=== PATIENT | female | born 1965 | race Caucasian/White ===

== ENCOUNTER 2019-11-18 23:54 | Emergency (ER) | payer MEDICAID ==
[2019-11-19] MEDS ORDERED: Ketorolac 60 MG/2 ML SDV IM ONE (00:48)
--- NOTE | 2019-11-19 00:55 | EDM.PDOC ---
ED HPI GENERAL MEDICAL PROBLEM - General Chief Complaint: Skin Complaint Stated Complaint: FELL OF DECK INJURING RIGHT CHEEK Time Seen by Provider: 11/19/19 00:40 Source of Information: Reports: Patient, Old Records History Limitations: Reports: No Limitations - History of Present Illness INITIAL COMMENTS - FREE TEXT/NARRATIVE: 54 yo female fell off her deck when the railing broke. No definite LOC. Has a GERMAN and R facial swelling. Vision was fine before the eye swelled shut. No vomiting or neck pain. No extremity injuries. Onset: Today Onset Date: 11/19/19 Onset Time: 00:00 Duration: Minutes:, Constant Location: Reports: Face Quality: Reports: Ache Severity: Moderate Improves with: Reports: None Worsens with: Reports: Other (touching area) Context: Reports: Trauma Associated Symptoms: Reports: No Other Symptoms Treatments CODING SPEC: Reports: Other (see below) (none) Right Cheek Pain Score (Numeric/FACES): 5 - Related Data Allergies Allergy/AdvReac Type Severity Reaction Status Date / Time No Known Allergies Allergy Verified 11/19/19 00:36 Home Meds: Home Meds Escitalopram [Lexapro] 20 mg PO DAILY 11/19/19 [History] Ibuprofen 600 mg PO ASDIRECTED 11/19/19 [History] buPROPion [buPROPion XL] 150 mg PO DAILY 11/19/19 [History] busPIRone [Buspar] 10 mg PO DAILY 11/19/19 [History] Past Medical History Genitourinary History: Reports: Other (See Below) Other Genitourinary History: endometriosis CADDIE History: Reports: Endometriosis Psychiatric History: Reports: Anxiety, Depression Dermatologic History: Reports: Other (See Below) Other Dermatologic History: rash on abdomen - Infectious Disease History Infectious Disease History: Reports: Chicken Pox - Past Surgical History Female Surgical History: Reports: Endometrial Ablation Social & Family History - Tobacco Use Smoking Status *Q: Never Smoker Second Hand Smoke Exposure: No - Caffeine Use Caffeine Use: Reports: Soda - Recreational Drug Use Recreational Drug Use: No ED ROS GENERAL - Review of Systems Review Of Systems: See Below Constitutional: Reports: No Symptoms HEENT: Reports: Other (R cheek pain and swelling. R eye swollen shut.) Respiratory: Reports: No Symptoms Cardiovascular: Reports: No Symptoms GI/Abdominal: Reports: No Symptoms. Denies: Nausea Musculoskeletal: Reports: No Symptoms Skin: Reports: Bruising (R cheek and periorbital ) Neurological: Reports: Headache ED EXAM, SKIN/RASH Exam: See Below Exam Limited By: No Limitations General Appearance: Alert, WD/WN, No Apparent Distress Eye Exam: Bilateral Eye: Normal Inspection (unable to visualize R eye due to swelling) Ears: Normal External Exam, Normal Canal, Hearing Grossly Normal, Normal TMs Nose: Normal Inspection, No Blood Throat/Mouth: Normal Inspection, Normal Lips, Normal Teeth, Normal Oropharynx, Normal Voice, No Airway Compromise Head: Facial Swelling (R cheek area), Facial Tenderness (R side) Neck: Normal Inspection, Supple, Non-Tender, Full Range of Motion Respiratory/Chest: No Respiratory Distress, Lungs Clear, Normal Breath Sounds, No Accessory Muscle Use Cardiovascular: Regular Rate, Rhythm, No Edema GI/Abdominal: Soft, Non-Tender, No Distention Back Exam: Normal Inspection. No: Vertebral Tenderness Extremities: Normal Inspection, Normal Range of Motion, Non-Tender, No Pedal Edema Neurological: Alert, Oriented, CN II-XII Intact, Normal Cognition, No Motor/Sensory Deficits Psychiatric: Normal Affect, Normal Mood Skin: Warm, Dry, Intact, No Rash, Ecchymosis (R cheek and R periorbital) Location, Skin: Face (R cheek) Associated features: Tenderness, Induration Course - Vital Signs Last Recorded V/S: Last Vital Signs Temp 35.4 C L 11/19/19 00:39 Pulse 85 11/19/19 00:39 Resp 16 11/19/19 00:39 BP 142/91 H 11/19/19 00:39 Pulse Ox 99 11/19/19 00:39 - Orders/Labs/Meds Meds: Medications Discontinued Medications Generic Name Dose Route Start Last Admin Trade Name Freq PRN Reason Stop Dose Admin Ketorolac Tromethamine 60 mg 11/19/19 00:48 11/19/19 00:55 Toradol IM 11/19/19 00:49 60 mg ONETIME ONE Administration - Radiology Interpretation Free Text/Narrative:: CT facial bones- IMPRESSION: Large hematoma within the subcutaneous tissues overlying the right maxilla and extending into the right lower eyelid and right lateral periorbital region. No sign of any associated facial fracture. No sign of any injury to the intraorbital soft tissue structures on the right. Please note that all CT scans at this facility use dose modulation, iterative reconstruction, and/or weight-based dosing when appropriate to reduce radiation dose to as low as reasonably achievable. Dictated by Vikas Fernandez MD @ Nov 19 2019 1:29AM (Electronic Signature) CT Results Date: 11/19/19 CT Results Time: 01:55 Departure - Departure Time of Disposition: 02:04 Disposition: Home, Self-Care 01 Condition: Fair Clinical Impression: Traumatic hematoma of face Qualifiers: Encounter type: initial encounter Qualified Code(s): S00.83XA - Contusion of other part of head, initial encounter - Discharge Information *PRESCRIPTION DRUG MONITORING PROGRAM REVIEWED*: No *COPY OF PRESCRIPTION DRUG MONITORING REPORT IN PATIENT JANELLE: No Instructions: Contusion, [id number] Referrals: Bronwyn Chairez PA-C [Primary Care Provider] - Forms: ED Department Discharge Additional Instructions: Acetaminophen and/or ibuprofen as needed for pain relief. Rest. Recheck as needed. Sepsis Event Note (ED) - Evaluation Sepsis Screening Result: No Definite Risk - Focused Exam Vital Signs: Vital Signs Temp Pulse Resp BP Pulse Ox 11/19/19 00:39 35.4 C L 85 16 142/91 H 99 11/19/19 00:23 35.4 C L 85 16 142/91 H 99
--- NOTE | 2019-11-19 01:35 | CRLCT ---
INDICATION: Status post fall, striking face on dock COMPARISON: None available TECHNIQUE: CT examination of the facial bones is performed without contrast enhancement using spiral technique. 2-mm thick axial, coronal and sagittal sections were obtained from the data. Please note that all CT scans at this facility use dose modulation, iterative reconstruction, and/or weight-based dosing when appropriate to reduce radiation dose to as low as reasonably achievable. FINDINGS: There is a large hematoma involving the right maxillary region, extending through the right lower eyelid in into the right lateral periorbital region. This is not associated with any fracture of the right orbital rim, right zygomatic arch, or right maxilla. The right side of the mandible is similarly intact. There is no sign of injury to the right globe or other intraorbital soft tissue structures. There is no sign of an intraorbital hematoma. There is no sign of any medial or inferior right orbital blowout fracture. There is no sign of facial fracture elsewhere on today`s study. The left orbit, left zygomatic arch, nasal bones, left maxilla, and left mandible are normal in appearance. The paranasal sinuses are clear. The mastoids are clear. The intraorbital soft tissue structures are unremarkable. The airway structures are normal in appearance. IMPRESSION: Large hematoma within the subcutaneous tissues overlying the right maxilla and extending into the right lower eyelid and right lateral periorbital region. No sign of any associated facial fracture. No sign of any injury to the intraorbital soft tissue structures on the right. Please note that all CT scans at this facility use dose modulation, iterative reconstruction, and/or weight-based dosing when appropriate to reduce radiation dose to as low as reasonably achievable. Dictated by Vikas Fernandez MD @ Nov 19 2019 1:29AM Signed by Dr. Vikas Fernandez @ Nov 19 2019 1:34AM
[2019-11-19] MEDS ORDERED: Ondansetron 4 MG Tab.DIS PO ONE (02:06)
== END 2019-11-19 02:18 | disposition home or self-care (01) ==
LOC: JP.ED 23:54
DX: S05.11XA Contusion of eyeball and orbital tissues, right eye, initial encounter (principal); F41.9 Anxiety disorder, unspecified; F32.9 Major depressive disorder, single episode, unspecified; Z79.899 Other long term (current) drug therapy; W17.89XA Other fall from one level to another, initial encounter
CPT/HCPCS: 70486; 96372; 99284; A9270; J1885

== ENCOUNTER 2021-12-28 07:13 | Day surgery (SDC) | payer MEDICAID ==
[2021-12-28] MEDS ORDERED: fentaNYL 100 MCG/2 ML SDV ONE (07:35)
[2021-12-28] MEDS ORDERED: Midazolam 1 MG/ML 2 ML SDV ONE (07:35)
[2021-12-28] MEDS ORDERED: Propofol 200 MG/20 ML SDV ONE (07:35)
[2021-12-28] MEDS: Lactated Ringers 1,000 ML IV SCH (08:07)
[2021-12-28] MEDS ORDERED: Dexamethasone 4 MG/ML SDV ONE (08:29)
[2021-12-28] MEDS ORDERED: Ondansetron 4 MG/2 ML SDV ONE (08:29)
== END 2021-12-28 11:14 | disposition home or self-care (01) ==
LOC: JP.SDS 07:13
PROVIDERS: ATTEND Family Medicine
DX: K59.01 Slow transit constipation (principal); K59.1 Functional diarrhea; Z79.899 Other long term (current) drug therapy
CPT/HCPCS: 45378; 81025; J1100; J2250; J2405; J2704; J3010; J7120